=== PATIENT | female | born 1995 | race Caucasian/White ===

== ENCOUNTER 2018-05-26 10:29 | Emergency (ER) | payer OTHER ==
--- NOTE | 2018-05-26 13:43 | ED ---
Headache - HPI Summary HPI Summary: daily DE ANDA w/ intermittent nausea as the day goes on - worse w/ exertion - better w/ rest. No neuro deficits. - History Of Current Complaint Chief Complaint: EDHeadache Stated Complaint: LEGS FEEL NUMB/NAUSEOUS/HEADACHE Time Seen by Provider: 05/26/18 11:15 Hx Obtained From: Patient - Allergies/Home Medications Allergies/Adverse Reactions: Allergies Allergy/AdvReac Type Severity Reaction Status Date / Time No Known Allergies Allergy Verified 05/26/18 11:17 PMH/Surg Hx/FS Hx/Imm Hx Infectious Disease History: No Infectious Disease History: Denies: Traveled Outside the [place] in Last 30 Days - Social History Alcohol Use: Weekly Alcohol Amount: 1-2x per week Substance Use Type: Reports: None Smoking Status (MU): Never Smoked Tobacco Physical Exam Vital Signs On Initial Exam: Initial Vitals Temp Pulse Resp BP Pulse Ox 98.2 F 90 14 122/67 98 05/26/18 10:36 05/26/18 10:36 05/26/18 10:36 05/26/18 10:36 05/26/18 10:36 Diagnostics - Vital Signs Vital Signs Temp Pulse Resp BP Pulse Ox 05/26/18 12:15 76 101/52 99 05/26/18 12:00 67 98 05/26/18 11:45 69 104/61 98 05/26/18 11:16 79 98 05/26/18 11:15 89 105/89 98 05/26/18 10:36 98.2 F 90 14 122/67 98 - Laboratory Lab Statement: Any lab studies that have been ordered have been reviewed, and results considered in the medical decision making process. Discharge - Sign-Out/Discharge Documenting (check all that apply): Patient Departure - Discharge Plan Condition: Stable Disposition: HOME Patient Education Materials: Post Concussion Syndrome (ED) Forms: *School Release Referrals: [facility] [Primary Care Provider] - Additional Instructions: You appear to have lingering symptoms of a minor concussion since her head injury 1 week ago. It is important that she try Tylenol and ibuprofen to see if this alleviates her headaches when they occur. He may also take frequent breaks while doing her schoolwork and avoid any physical exertion. Follow-up with [facility] this week and an effort to monitor your symptoms in the event that she need more aggressive therapy to aid in recovery. If you develop change in vision, vomiting, dizziness, numbness, weakness, syncope or slurred speech, severe intractable headache, return to ED - Billing Disposition and Condition Condition: STABLE Disposition: Home
[2018-05-26 13:49] VITALS: BP 107/60
== END 2018-05-26 13:48 | disposition home or self-care (01) ==
LOC: ED 10:29
DX: R51 Headache (principal); R11.0 Nausea
CPT/HCPCS: 99282